=== PATIENT | female | born 1960 | race Two or more races ===

== ENCOUNTER 2018-09-09 11:51 | Outpatient (CLI) | payer OTHER | END 2018-09-09 12:17 | disposition home or self-care (01) | LOC: MAMO-SONO 11:51 | DX: Z12.31 Encounter for screening mammogram for malignant neoplasm of breast (principal); N61.1 Abscess of the breast and nipple; E04.1 Nontoxic single thyroid nodule ==

== ENCOUNTER 2018-09-09 12:48 | Outpatient (CLI) | payer OTHER | END 2018-09-09 13:00 | disposition home or self-care (01) | LOC: NUCLEAR 12:48 | DX: M81.0 Age-related osteoporosis without current pathological fracture (principal) ==

== ENCOUNTER → 2019-08-14 11:54 | Outpatient (CLI) | payer OTHER | END | disposition home or self-care (01) | LOC: RAD 11:54 | DX: N20.0 Calculus of kidney (principal); R31.1 Benign essential microscopic hematuria ==

== ENCOUNTER 2019-08-16 12:17 | Outpatient (CLI) | payer OTHER | END 2019-08-16 12:21 | disposition home or self-care (01) | LOC: SONOGRAMA 12:17 | DX: N20.0 Calculus of kidney (principal); R31.1 Benign essential microscopic hematuria ==

== ENCOUNTER 2020-01-19 08:50 | Outpatient (CLI) | payer OTHER | END 2020-01-19 08:52 | disposition home or self-care (01) | LOC: TOM 08:50 | PROVIDERS: ATTEND Otolaryngology | DX: K11.5 Sialolithiasis (principal); R22.1 Localized swelling, mass and lump, neck ==

== ENCOUNTER 2020-07-18 07:59 | Emergency (ER) | payer OTHER ==
[~2020-07-18] VITALS: Ht 165.1 cm; Wt 63.5 kg
[2020-07-18] MEDS ORDERED: LEVOTHYROXINE25 MCG PO (08:07)
[2020-07-18] MEDS ORDERED: CIPRO500 MG PO (12:25)
== END 2020-07-18 12:34 | disposition home or self-care (01) ==
LOC: ER 07:59
DX: R10.2 Pelvic and perineal pain (principal); R30.0 Dysuria; Z03.818 Encounter for observation for suspected exposure to other biological agents ruled out

== ENCOUNTER 2021-03-14 12:51 | Outpatient (CLI) | payer OTHER ==
[~2021-03-14 12:51] MED LIST: CIPRO500 MG PO; LEVOTHYROXINE25 MCG PO
== END 2021-03-14 13:12 | disposition home or self-care (01) ==
LOC: MAMO-SONO 12:51
PROVIDERS: ATTEND Internal Medicine Endocrinology, Diabetes & Metabolism
DX: E04.1 Nontoxic single thyroid nodule (principal); Z12.31 Encounter for screening mammogram for malignant neoplasm of breast; N64.4 Mastodynia

== ENCOUNTER → 2021-03-30 14:02 | Outpatient (CLI) | payer OTHER | END | disposition home or self-care (01) | LOC: NUCLEAR 03-29 13:45 | PROVIDERS: ATTEND Internal Medicine Endocrinology, Diabetes & Metabolism | DX: M81.0 Age-related osteoporosis without current pathological fracture (principal) ==

== ENCOUNTER 2021-05-15 11:53 | Outpatient (CLI) | payer OTHER | END 2021-05-15 11:59 | disposition home or self-care (01) | LOC: RAD 11:53 | DX: Z01.89 Encounter for other specified special examinations (principal); R07.89 Other chest pain ==

== ENCOUNTER 2021-10-03 14:11 | Outpatient (CLI) | payer OTHER | END 2021-10-03 14:12 | disposition home or self-care (01) | LOC: SONOGRAMA 14:11 | PROVIDERS: ATTEND Urology | DX: N20.0 Calculus of kidney (principal) ==

== ENCOUNTER 2021-10-03 15:59 | Outpatient (CLI) | payer OTHER | END 2021-10-03 16:04 | disposition home or self-care (01) | LOC: LAB 15:59 | PROVIDERS: ATTEND Urology | DX: N39.0 Urinary tract infection, site not specified (principal) ==

== ENCOUNTER 2022-03-07 08:26 | Outpatient (CLI) | payer OTHER | END 2022-03-07 08:32 | disposition home or self-care (01) | LOC: SONOGRAMA 08:26 | PROVIDERS: ATTEND Internal Medicine Gastroenterology | DX: R16.2 Hepatomegaly with splenomegaly, not elsewhere classified (principal) ==

== ENCOUNTER 2022-07-31 11:14 | Outpatient (CLI) | payer OTHER | END 2022-07-31 11:15 | disposition home or self-care (01) | LOC: LAB 11:14 | PROVIDERS: ATTEND Internal Medicine Endocrinology, Diabetes & Metabolism | DX: A49.3 Mycoplasma infection, unspecified site (principal); J11.1 Influenza due to unidentified influenza virus with other respiratory manifestations; Z20.822 Contact with and (suspected) exposure to COVID-19; Z28.311 Partially vaccinated for COVID-19; J15.7 Pneumonia due to Mycoplasma pneumoniae; R05.9 Cough, unspecified ==

== ENCOUNTER 2024-12-17 14:38 | Outpatient (CLI) | payer OTHER | END 2024-12-17 14:47 | disposition home or self-care (01) | LOC: SONOGRAMA 14:38 | PROVIDERS: ATTEND Urology | DX: N20.0 Calculus of kidney (principal) ==

== ENCOUNTER 2024-12-22 14:30 | Outpatient (CLI) | payer OTHER | END 2024-12-22 14:40 | disposition home or self-care (01) | LOC: SONOGRAMA 14:30 | PROVIDERS: ATTEND Internal Medicine Gastroenterology | DX: R10.13 Epigastric pain (principal); R16.0 Hepatomegaly, not elsewhere classified ==